=== PATIENT | female | born 1955 | race Caucasian/White ===

== ENCOUNTER → 2019-11-26 | Outpatient (CLI) | payer BC ==
--- NOTE | 2019-11-30 08:59 | MM ---
Reason for exam: screening (asymptomatic). Last mammogram was performed 4 years and 8 months ago. History: Patient is postmenopausal. Family history of breast cancer in sister at age 35. Physical Findings: A clinical breast exam by your physician is recommended on an annual basis and results should be correlated with mammographic findings. MG Screening Mammo w CAD Bilateral CC and MLO view(s) were taken. Prior study comparison: March 21, 2015, bilateral MG screening mammo w CAD. March 10, 2013, left diagnostic mammogram w/CAD. The breast tissue is heterogeneously dense. This may lower the sensitivity of mammography. Finding: There is a high density, indistinct round mass located 2.7 cm from the nipple in the lower inner quadrant, anterior position of the left breast. New finding since March 21, 2015. ASSESSMENT: Incomplete: need additional imaging evaluation, BI-RAD 0 RECOMMENDATION: Special view mammogram of the left breast. If lesion persists on supplemental views, image directed ultrasound is recommended. [facility] will attempt to contact patient to return for supplemental views and ultrasound if indicated.
== END | disposition home or self-care (01) ==
LOC: RADMAMWWP 07:50
PROVIDERS: ATTEND Obstetrics & Gynecology
DX: Z12.31 Encounter for screening mammogram for malignant neoplasm of breast (principal); R92.8 Other abnormal and inconclusive findings on diagnostic imaging of breast; Z80.3 Family history of malignant neoplasm of breast
CPT/HCPCS: 77067

== ENCOUNTER → 2019-12-28 | Outpatient (CLI) | payer BC ==
--- NOTE | 2019-12-28 11:56 | MM ---
Reason for exam: additional evaluation requested from abnormal screening. Last mammogram was performed 1 month ago. History: Patient is postmenopausal. Family history of breast cancer in sister at age 35. Physical Findings: Nurse did not find any significant physical abnormalities on exam. MG Work Up Mamm w CAD LT Spot compression CC, spot compression MLO, and LM view(s) were taken of the left breast. Prior study comparison: November 26, 2019, bilateral MG screening mammo w CAD. March 21, 2015, bilateral MG screening mammo w CAD. The breast tissue is heterogeneously dense. This may lower the sensitivity of mammography. Left lower inner quadrant focal asymmetry 3-4cm from nipple slightly improves on additional views. Precautionary ultrasound will be performed. These results were verbally communicated with the patient and result sheet given to the patient on 12/28/19. ASSESSMENT: Incomplete: need additional imaging evaluation, BI-RAD 0 RECOMMENDATION: Ultrasound of the left breast. (lower inner quadrant)
--- NOTE | 2019-12-28 11:57 | USB ---
Reason for exam: additional evaluation requested from abnormal screening. History: Patient is postmenopausal. Family history of breast cancer in sister at age 35. US Breast Workup Limited LT Technologist: Sonali Myers Left limited breast ultrasound including focal area of concern, retroareolar and axilla demonstrates no cystic or solid lesion seen. No suspicious sonographic finding. These results were verbally communicated with the patient and result sheet given to the patient on 12/28/19. ASSESSMENT: Negative, BI-RAD 1 RECOMMENDATION: Return to routine screening mammogram schedule for both breasts.
== END | disposition home or self-care (01) ==
LOC: RADMAMWWP 08:49
PROVIDERS: ATTEND Obstetrics & Gynecology
DX: R92.8 Other abnormal and inconclusive findings on diagnostic imaging of breast (principal)
CPT/HCPCS: 77065

== ENCOUNTER → 2022-01-31 | Outpatient (CLI) | payer MEDICARE ==
--- NOTE | 2022-01-31 11:19 | EST ---
EXERCISE STRESS AGE: 66 SEX: F HT: 5'11" WT: 180 lbs. PROTOCOL: Steve STAGE: 3 DURATION OF EXERCISE: 9:00 HEART RATE REST: 66 BLOOD PRESSURE REST: 127/82 MAXIMUM HEART RATE ACHIEVED: 140 MAXIMUM BLOOD PRESSURE: 166/86 85% MPHR: 132 100% MPHR: 155 METS: 10.3 INDICATIONS: Family history of CAD CLINICAL INFORMATION: Baseline EKG revealed normal sinus rhythm with right bundle branch block pattern, repolarization abnormality. Patient walked for 9 minutes on a standard Steve protocol, achieved a maximal heart rate of 140 beats per minute, which is more than 85% of predicted maximal. EKG remained inconclusive. Patient did not have symptoms. Peak blood pressure was 166/86. By EKG criteria, this is considered as an inconclusive stress test because of resting EKG changes with fair exercise capacity. If ischemia is suspected, I would recommend a stress Cardiolite scan or a stress echocardiogram if images are acceptable. MMODL / IJN: [id number] /
== END | disposition home or self-care (01) ==
LOC: RADNMMAIN 08:40
PROVIDERS: ATTEND Internal Medicine
DX: I45.10 Unspecified right bundle-branch block (principal); R94.39 Abnormal result of other cardiovascular function study; Z82.49 Family history of ischemic heart disease and other diseases of the circulatory system
CPT/HCPCS: 93017

== ENCOUNTER → 2022-05-01 | Outpatient (CLI) | payer MEDICARE ==
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
--- NOTE | 2022-05-02 09:23 | MM ---
Reason for Exam: Screening (asymptomatic). Last mammogram was performed 2 year(s) and 5 month(s) ago. Patient History: Menarche at age 12. Postmenopausal. Sister had breast cancer, age 35. Risk Values: Dinorah 5 year model risk: 3.4%. NCI Lifetime model risk: 12.0%. Prior Study Comparison: 03/21/2015 Bilateral Screening Mammogram, [facility]. 11/26/2019 Bilateral Screening Mammogram, [facility]. 12/28/2019 Left Diagnostic Mammogram, [facility]. Tissue Density: The breast tissue is heterogeneously dense. This may lower the sensitivity of mammography. Findings: Analyzed By CAD. There is no suspicious group of microcalcifications or new suspicious mass in either breast. Overall Assessment: Benign, BI-RAD 2 Management: Screening Mammogram of both breasts in 1 year. A clinical breast exam by your physician is recommended on an annual basis and results should be correlated with mammographic findings. Electronically signed and approved by: Lee Abdi M.D. Radiologis
== END | disposition home or self-care (01) ==
LOC: RADMAMWWP 08:05
PROVIDERS: ATTEND Internal Medicine
DX: Z12.31 Encounter for screening mammogram for malignant neoplasm of breast (principal); Z78.0 Asymptomatic menopausal state; Z80.3 Family history of malignant neoplasm of breast
CPT/HCPCS: 77063; 77067; 77080

== ENCOUNTER → 2023-07-02 | Outpatient (CLI) | payer MEDICARE ==
--- NOTE | 2023-07-03 07:56 | MM ---
Reason for Exam: Screening (asymptomatic). Last mammogram was performed 1 year(s) and 2 month(s) ago. Patient History: Menarche at age 12. Postmenopausal. Sister had breast cancer, age 35. Risk Values: Dinorah 5 year model risk: 3.5%. NCI Lifetime model risk: 11.5%. Prior Study Comparison: 11/26/2019 Bilateral Screening Mammogram, [facility]. 12/28/2019 Left Diagnostic Mammogram, [facility]. 05/01/2022 Bilateral MG 3D screening mammo w/cad, [facility]. Tissue Density: The breast tissue is heterogeneously dense. This may lower the sensitivity of mammography. Findings: Analyzed By CAD. There is no suspicious group of microcalcifications or new suspicious mass in either breast. Overall Assessment: Benign, BI-RAD 2 Management: Screening Mammogram of both breasts in 1 year. . Patient should continue monthly self-breast exams. A clinical breast exam by your physician is recommended on an annual basis. This exam should not preclude additional follow-up of suspicious palpable abnormalities. Note on Dinorah scores and lifetime risk: 1. A Dinorah score greater than 3% is considered moderate risk. If this is the case, consider specialist referral to assess eligibility for a risk reducing agent. 2. If overall lifetime risk for the development of breast cancer is 20% or higher, the patient may qualify for future screening with alternating mammogram and breast MRI. Electronically signed and approved by: Lee Abdi M.D. Radiologis
== END | disposition home or self-care (01) ==
LOC: RADMAMWWP 06:55
PROVIDERS: ATTEND Internal Medicine
DX: Z12.31 Encounter for screening mammogram for malignant neoplasm of breast (principal); Z78.0 Asymptomatic menopausal state; Z80.3 Family history of malignant neoplasm of breast
CPT/HCPCS: 77063; 77067

== ENCOUNTER → 2023-07-04 | Outpatient (CLI) | payer MEDICARE | END | disposition home or self-care (01) | LOC: RADNMMAIN 07:52 | PROVIDERS: ATTEND Internal Medicine | DX: Z53.9 Procedure and treatment not carried out, unspecified reason (principal) ==

== ENCOUNTER → 2023-07-09 | Day surgery (SDC) | payer MEDICARE ==
[~2023-07-09] MED LIST: LACTATED RINGERS 1,000 ML IV SCH; LIDOCAINE 1% (10MG/ML) FOR IV START INTRADERMA PRN; LIDOCAINE 2% INJ 20 MG/ML (2 ML VIAL) ONE; PROPOFOL 10 MG/ML 20 ML VIAL IV ONE
[2023-07-09 11:41] VITALS: TEMP 97.5
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
--- NOTE | 2023-07-09 12:26 | P.PCN ---
Date of Procedure: 07/09/23 Procedure(s) Performed: PREOPERATIVE DIAGNOSIS: Colon cancer screening POSTOPERATIVE DIAGNOSIS: Small sigmoid colon polyp PROCEDURE: Colonoscopy with biopsy ANESTHESIA: MAC SURGEON: Neeraj Stephens M.D. SPECIMENS: Polyp ENDOSCOPIC PROCEDURE: The patient was placed on the endoscopy table in the left decubitus position. The Olympus colonoscope was inserted into the anus and passed under direct visualization to the base of the cecum. The appendiceal orifice was visualized. From that point the scope was slowly withdrawn inspecting all surfaces carefully. There were no neoplastic inflammatory or polypoid lesions throughout the cecum, ascending, transverse, or descending colon. In the sigmoid colon a small 2-3 mm polyp was seen in removed using the cold biopsy forceps. The remainder of the sigmoid and rectum appeared normal. There was mild left-sided diverticulosis. Digital rectal examination was normal. The patient was taken to the recovery room in stable condition per anesthesia guidelines. RECOMMENDATIONS: Await biopsy results. Anticipate repeat colonoscopy in 7 years.
[2023-07-09 12:30] VITALS: RESP 12
[2023-07-09 12:43] VITALS: BP 111/69; PULSE 59
== END ==
LOC: ORWHC2ENDO 11:06
PROVIDERS: ATTEND Surgery
DX: Z12.11 Encounter for screening for malignant neoplasm of colon (principal); K57.30 Diverticulosis of large intestine without perforation or abscess without bleeding; K63.5 Polyp of colon; I10 Essential (primary) hypertension; E78.5 Hyperlipidemia, unspecified; E07.9 Disorder of thyroid, unspecified; Z88.0 Allergy status to penicillin; Z79.890 Hormone replacement therapy; Z79.899 Other long term (current) drug therapy
CPT/HCPCS: 88305; 45380; J2704; J2001

== ENCOUNTER → 2023-07-16 | Outpatient (CLI) | payer MEDICARE ==
--- NOTE | 2023-07-16 16:58 | CA ---
Exercise Nuclear Stress Test Report Name: Mary Anne Dominique Exam Date: 07/16/2023 11:01 Exam Location: [place] Stress Ht (in): 70 Wt (lb): 185 BSA: 2.02 Ordering Phys: Anayeli Marti MD Referring Phys: Kaia,, Technologist: ZURI,, Age: 68 Gender: F : 1955 Procedure CPT: Indications: I25.10 Athscl heart disease ICD-10 Codes: Patient History: ASCAD Medications: Meds past 24 hrs: Pretest Chest Pain: STRESS TEST Steve Protocol Exercise Duration (min:sec): 09:[address] Depressions (mm): Angina Score: Emery Score: Resting HR (bpm): 64 Peak HR (bpm): 130 Resting BP (mmHg): 135 / 75 Peak BP (mmHg): / 81 MPHR: 153 Target HR: 130 % MPHR: 85 METS: 10.3 Total Dose: Peak Dose: Atropine: Double Product: BP Response: Stress Termination: Reached target heart rate Stress Symptoms: No chest pain or symptoms Stress Summary: ECG ANALYSIS Resting ECG: Stress ECG: CONCLUSIONS Exercise Cardiolite stress test Patient exercise no Steve protocol for 9 minutes Peak heart rate 130 beats a minute. Normal blood pressure response No ECG evidence for ischemia No arrhythmias Nuclear portion will be reported separately Dr. Garrick Guerrier MD (Electronically Signed) Final Date: 16 July 2023 16:58
--- NOTE | 2023-07-17 21:06 | NM ---
EXAMINATION TYPE: NM stress cardiolite complete DATE OF EXAM: 07/16/2023 COMPARISON: NONE CLINICAL INDICATION: Female, 68 years old with history of I25.10 ATHSCL HEART DISEASE; TECHNIQUE: After the intravenous administration of 9.8 mCi Tc 99m Sestamibi - Rest images obtained 5 1 minutes post injection. The patient exercised using a MARIOLA protocol and 1 minute prior to peak e xercise was injected with 25.7 mCi Tc 99m Sestamibi - Stress images obtained 25 minutes post injectio n. FINDINGS: Targeted heart rate (130 BPM) was achieved during performance of the study (130 BPM achieved). Total exercise time 9 minutes. Review of stress and rest SPECT images demonstrates no distinct perfusion ab normality. Gated analysis shows normal wall motion with an estimated left ventricular ejection fract ion of 71 %. TID this calculated at 0.88, within normal limits. IMPRESSION: Borderline adequate exercise stress. No scintigraphic evidence for reversible ischemia
== END | disposition home or self-care (01) ==
LOC: RADNMMAIN 09:01
PROVIDERS: ATTEND Internal Medicine
DX: I25.10 Atherosclerotic heart disease of native coronary artery without angina pectoris (principal)
CPT/HCPCS: 93017; 78452; A9500

== ENCOUNTER 2024-05-27 16:06 | Emergency (ER) | payer MEDICARE ==
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
[2024-05-27] MEDS: NITROGLYCERIN SL TABS 0.4 MG TAB SUBLINGUAL STA (16:42)
[2024-05-27] MEDS: GLUCAGON 1 MG/ML VIAL IVP STA (16:44)
[2024-05-27] MEDS: GLUCAGON 1 MG/ML VIAL IM STA (16:44)
[2024-05-27] MEDS: SODIUM CHLORIDE 0.9% 500 ML 500 ML IV STA (16:46)
[2024-05-27 16:47] LABS: Basophils # (A) 0.1 k/uL (0-0.2); Basophils % (A) 1 %; Eosinophils # (A) 0.1 k/uL (0-0.7); Eosinophils % (A) 1 %; HCT 46.6 % (34.0-46.0); HGB 14.8 gm/dL (11.4-16.0); Lymphocytes # (A) 1.7 k/uL (1.0-4.8); Lymphocytes % (A) 26 %; MCH 30.6 pg (25.0-35.0); MCHC 31.9 g/dL (31.0-37.0); Mean Platelet Volume 9.1; Monocytes # (A) 0.5 k/uL (0-1.0); Monocytes % (A) 8 %; Neutrophils % (A) 60 %; Platelet Count 192 k/uL (150-450); RBC 4.85 m/uL (3.80-5.40); RDW 12.7 % (11.5-15.5); WBC 6.6 k/uL (3.8-10.6)
[2024-05-27 17:02] LABS: INR 0.9 (<1.2); Partial Thromboplastin Time 23.4 sec (22.0-30.0); Prothrombin Time 10.5 sec (10.0-12.5)
--- NOTE | 2024-05-27 17:10 | XR ---
EXAMINATION TYPE: XR chest 1V portable DATE OF EXAM: 05/27/2024 Comparison: None Clinical History: 69-year-old female chest pain Findings: Heart upper limits of normal in size. Aorta and pulmonary vasculature within normal limits. Mild inte rstitial prominence. Mild hyperinflation. No consolidation or pleural effusion. Impression: Borderline heart size. Possible underlying COPD. No definite acute process.
[2024-05-27 17:14] LABS: ALT 47 U/L (4-34); African American GFR (CKD) 79 (>60 ml/min/1.73 sqM); Anion Gap 9 mmol/L; Blood Urea Nitrogen 14 mg/dL (7-17); Calcium 9.7 mg/dL (8.4-10.2); Carbon Dioxide 28 mmol/L (22-30); Chloride 104 mmol/L (98-107); Glucose 128 mg/dL (74-99); Non-African American GFR(CKD) 69 (>60 ml/min/1.73 sqM); Sodium 141 mmol/L (137-145); Total Bilirubin 1.2 mg/dL (0.2-1.3)
[2024-05-27 17:39] LABS: AST 51 U/L (14-36); Albumin 4.8 g/dL (3.5-5.0); Potassium 4.3 mmol/L (3.5-5.1)
[2024-05-27 17:40] LABS: Alkaline Phosphatase 114 U/L (38-126); Magnesium 1.8 mg/dL (1.6-2.3); Total Protein 8.2 g/dL (6.3-8.2)
[2024-05-27] MEDS: LIDOCAINE VISCOUS 2% 15 ML CUP MUCOUS MEM STA (17:48)
[2024-05-27 18:07] VITALS: TEMP 98.9
--- NOTE | 2024-05-27 19:12 | CT ---
EXAMINATION TYPE: CT soft tissue neck w con DATE OF EXAM: 05/27/2024 COMPARISON: None HISTORY: 69-year-old female with odynophagia, painful swallowing TECHNIQUE: Contiguous axial scanning of the soft tissues of the neck performed with IV Contrast, colette ent injected with 100 ml mL of Isovue 300. Coronal/sagittal reconstructions performed. CT DLP: 267.5 mGycm Automated exposure control for dose reduction was used. FINDINGS: Visualized intracranial structures, orbits and globes, and mastoid air cells appear clear. There is m oderate mucosal thickening along the floor of the left maxillary sinus. Nasopharynx is clear. There is asymmetric hypertrophy of the left palatine tonsils, refer to axial image 64 for which direc t visualization is recommended. Otherwise, epiglottis and prevertebral soft tissues are satisfactory. The glottic and subglottic structures as well as the tracheal column are clear. There is fluid distending the thoracic esophagus. Mild intraglandular ductal dilatation of the submandibular glands. No associated inflammation seen. T he parotid glands are satisfactory. Thyroid gland is markedly atrophic. No cervical lymphadenopathy is seen. Bones: No osseous destructive process. IMPRESSION: 1. A FLUID COLUMN DISTENDING THE THORACIC ESOPHAGUS. DISTAL ESOPHAGEAL STRICTURE OR SIGNIFICANT GASTR OESOPHAGEAL REFLUX ARE IN THE DIFFERENTIAL. CONSIDER DIRECT VISUALIZATION. 2. ASYMMETRIC HYPERTROPHY OF THE LEFT PALATINE TONSIL. RECOMMEND DIRECT VISUALIZATION TO EXCLUDE A MU COSAL LESION/MASS HERE.
--- NOTE | 2024-05-27 19:46 | CT ---
EXAMINATION TYPE: CT ChestAbdPelvis wo con DATE OF EXAM: 05/27/2024 COMPARISON: Correlation CT neck earlier today HISTORY: 69-year-old female painful swallowing TECHNIQUE: Contiguous axial scanning of the chest, abdomen, and pelvis without IV contrast. Coronal a nd sagittal reconstructions performed. CT DLP: 670.7 mGycm Automated exposure control for dose reduction was used. FINDINGS: Chest: Heart normal size without pericardial effusion. LAD coronary calcifications are present. Ectatic aortic root at 3.9 cm. Mildly aneurysmal ascending aorta 4.3 cm. Conventional arch vessel bra nching anatomy. Ectatic upper descending thoracic aorta 3.0 cm. Partially calcified lower right paratracheal lymph node compatible with prior granulomatous disease. Nodular opacity within the upper-outer quadrant of the right breast measuring 1.7 cm, axial image 33 may represent a focal island of fibroglandular tissue. This can be correlated with diagnostic mammogr aphic evaluation. Mild diffuse bronchial wall thickening. Minimal biapical pleural parenchymal scarring. Calcified gran uloma medial right upper lobe. Streaky atelectasis medial right middle lobe. Some minimal tree-in-bud opacities noted in the lung bases. No pleural effusion. No elsi consolidation. The thoracic esophagus is mildly dilated up to 3.2 cm wide with a fluid column extending distally. At the distal esophagus, there is a small solid food bolus followed by circumferential thickening, axia l image 56. ABDOMEN: Noncontrast liver, adrenal glands, stomach and pancreas are within normal limits. There is a subcentimeter diverticulum of the third portion of the duodenum projecting up into the [place] creatic head region. Gallbladder is borderline distended up to 4.0 cm wide. Without any surrounding inflammation. Small la yering stones are noted. There is also nondependent intraluminal gallbladder, possibly sequela of pre vious sphincterotomy and should be correlated clinically. No dilated small bowel, free fluid, or free air. No mesenteric or retroperitoneal lymphadenopathy. Sigmoid diverticulosis. No pericolonic inflammatory change. Pelvis: IV contrast material excreted into the bladder. Uterus retroverted. Small bilateral ovaries. No abno rmal fluid collection pelvis or pelvic lymphadenopathy. Bones: Mild degenerative change of the hips. Severe degenerative endplate spondylosis L5-S1. Hypertrophic fa cet arthropathy mid to lower lumbar spine with degenerative grade 1 anterolisthesis L4-L5. 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 IMPRESSION: 1. FINDINGS SUSPICIOUS FOR EITHER A DISTAL ESOPHAGEAL STRICTURE VERSUS OBSTRUCTING NEOPLASM. THIS RES ULTS IN A DILATED AND FLUID-FILLED THORACIC ESOPHAGUS, DISTENDED UP TO 3.2 CM WIDE. RECOMMEND FURTHER GI MEDICINE EVALUATION. 2. MILD BIBASILAR TREE-IN-BUD DENSITIES AND MILD DIFFUSE BRONCHIAL WALL THICKENING. Consider bronchio litis, possible sequela of aspiration. 3. A soft tissue nodular area measuring 1.7 cm along the upper-outer quadrant of the right breast cou ld represent a global asymmetry/island of fibroglandular tissue. Recommend diagnostic mammogram evalu ation when patient able to exclude a new mass. 4. Cholelithiasis. There is some nondependent air within the gallbladder lumen. The cause of this is unclear, possibly secondary to prior sphincterotomy.
[2024-05-27 21:17] VITALS: BP 136/72; PULSE 64; RESP 16
== END 2024-05-27 21:00 | disposition other institution (70) ==
LOC: EC 16:06
DX: K22.2 Esophageal obstruction (principal); Z88.0 Allergy status to penicillin
CPT/HCPCS: 36415; 93005; 80053; 83735; 84484; 85025; 85610; 85730; 71045; 70491; 71250; 74176; 99285; 96374; 96361; J1610; Q9967